=== PATIENT | male | born 2000 | race Two or more races ===

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

== ENCOUNTER → 2020-09-07 | Outpatient (REF) | payer OTHER ==
[2020-09-07 16:27] LABS: BASO % 0.5 % (0.0-1.0); EOS # 0.5 10^3/uL (0.0-0.5); EOS % 8.7 % (0.0-3.0); HEMATOCRIT 48.6 % (42.0-52.0); HEMOGLOBIN 16.4 g/dl (13.5-17.5); LYMPH # 2.7 10^3/uL (1.5-5.0); LYMPH % 47.2 % (24.0-44.0); MEAN CORPUSCULAR HEMOGLOBIN 30.1 pg (27.0-33.0); MEAN CORPUSCULAR HGB CONC 33.7 g/dl (32.0-36.5); MEAN CORPUSCULAR VOLUME 89.3 fl (80.0-96.0); MONO # 0.5 10^3/uL (0.0-0.8); MONO % 9.2 % (2.0-8.0); NEUTROPHILS # 1.9 10^3/uL (1.5-8.5); NEUTROPHILS % 34.2 % (36.0-66.0); PLATELET COUNT, AUTOMATED 286 10^3/uL (150-450); RED BLOOD COUNT 5.44 10^6/uL (4.30-6.10); WHITE BLOOD COUNT 5.6 10^3/uL (4.0-10.0)
[2020-09-07 16:54] LABS: MONO REFLEX EBV COMP NEGATIVE (NEGATIVE)
[2020-09-07 17:02] LABS: ALBUMIN 4.3 GM/DL (3.2-5.2); ALT/SGPT 108 U/L (12-78); BILIRUBIN,TOTAL 0.4 MG/DL (0.2-1.0); BLOOD UREA NITROGEN 15 MG/DL (7-18); CALCIUM LEVEL 10.2 MG/DL (8.5-10.1); CARBON DIOXIDE LEVEL 28 MEQ/L (21-32); CHLORIDE LEVEL 104 MEQ/L (98-107); CREATININE FOR GFR 1.01 MG/DL (0.70-1.30); GLUCOSE, FASTING 87 MG/DL (70-100); POTASSIUM SERUM 4.3 MEQ/L (3.5-5.1); SODIUM LEVEL 138 MEQ/L (136-145); TOTAL PROTEIN 7.9 GM/DL (6.4-8.2)
[2020-09-09 15:12] LABS: EBV VIRAL CAPSID AG IgM <36.0 U/mL (0.0-35.9)
== END ==
LOC: M SFHCCAPE 08:23
PROVIDERS: ATTEND Physician Assistant
DX: J02.9 Acute pharyngitis, unspecified (principal)
CPT/HCPCS: 80053; 85025; 86308; 86664; 86665; G0463

== ENCOUNTER → 2021-09-26 | Outpatient (REF) | payer OTHER | LOC: M SFHCCAPE 10:34 | PROVIDERS: ATTEND Physician Assistant | DX: F32.A Depression, unspecified (principal); F41.9 Anxiety disorder, unspecified; R41.840 Attention and concentration deficit; F43.22 Adjustment disorder with anxiety; E66.9 Obesity, unspecified ==

== ENCOUNTER → 2021-09-27 | Outpatient (REF) | payer OTHER ==
[2021-09-27 16:07] LABS: BASO % 0.6 % (0.0-1.0); EOS # 0.2 10^3/uL (0.0-0.5); EOS % 4.1 % (0.0-3.0); HEMATOCRIT 43.9 % (42.0-52.0); HEMOGLOBIN 14.8 g/dl (13.5-17.5); LYMPH # 2.2 10^3/uL (1.5-5.0); LYMPH % 41.1 % (24.0-44.0); MEAN CORPUSCULAR HGB CONC 33.7 g/dl (32.0-36.5); MONO # 0.5 10^3/uL (0.0-0.8); MONO % 9.8 % (2.0-8.0); NEUTROPHILS # 2.4 10^3/uL (1.5-8.5); NEUTROPHILS % 44.2 % (36.0-66.0); PLATELET COUNT, AUTOMATED 223 10^3/uL (150-450); RED BLOOD COUNT 4.93 10^6/uL (4.30-6.10); WHITE BLOOD COUNT 5.4 10^3/uL (4.0-10.0)
[2021-09-27 16:49] LABS: ALBUMIN 3.9 GM/DL (3.2-5.2); ALT/SGPT 34 U/L (12-78); BILIRUBIN,TOTAL 0.6 MG/DL (0.2-1.0); BLOOD UREA NITROGEN 18 MG/DL (7-18); CALCIUM LEVEL 8.8 MG/DL (8.5-10.1); CARBON DIOXIDE LEVEL 27 MEQ/L (21-32); CHLORIDE LEVEL 109 MEQ/L (98-107); CHOLESTEROL LEVEL 153 MG/DL (<200); CHOLESTEROL RISK RATIO 3.825 (<5); CREATININE FOR GFR 1.07 MG/DL (0.70-1.30); GLOMERULAR FILTRATION RATE > 60.0 (>60); GLUCOSE, FASTING 92 MG/DL (70-100); HDL CHOLESTEROL 40 MG/DL (>40); LDL CHOLESTEROL 97 MG/DL (<100); NON-HDL-C 113 MG/DL; POTASSIUM SERUM 4.3 MEQ/L (3.5-5.1); SODIUM LEVEL 139 MEQ/L (136-145); THYROID STIMULATING HORMONE 0.791 uIU/ML (0.358-3.740); TOTAL PROTEIN 6.8 GM/DL (6.4-8.2); TRIGLYCERIDES LEVEL 80 MG/DL (<150)
[2021-09-27 17:55] LABS: TOTAL 25(OH) VITAMIN D 22.9 NG/ML (30.0-100.0); VITAMIN B12 LEVEL 381 PG/ML
== END ==
LOC: M SFHCCAPE 07:19
PROVIDERS: ATTEND Physician Assistant
DX: F32.A Depression, unspecified (principal); F41.9 Anxiety disorder, unspecified; R41.840 Attention and concentration deficit; F43.22 Adjustment disorder with anxiety; E66.9 Obesity, unspecified

== ENCOUNTER 2024-06-05 08:52 | Day surgery (SDC) | payer BC ==
[~2024-06-05] VITALS: Ht 188 cm; Wt 122.9 kg
[~2024-06-05 08:52] MED LIST: AMPH1TAB2 PO; DEXTROAMPHETAMINE PO
[2024-06-05] MEDS: LR 1,000 ML IV SCH (10:07)
[2024-06-05] MEDS ORDERED: ROCURONIUM BROMIDE 50MG/5ML VIAL As Ordered ONE (10:29)
[2024-06-05] MEDS ORDERED: LIDOCAINE 2% 100MG/5ML SDV (FOR ANES.) As Ordered ONE (10:29)
[2024-06-05] MEDS ORDERED: propofoL 200 MG/20 ML VIAL As Ordered ONE (10:29)
[2024-06-05] MEDS ORDERED: MIDAZOLAM INJ 2MG/2ML VIAL As Ordered ONE (10:29)
[2024-06-05] MEDS ORDERED: fentaNYL 100 MCG/2 ML INJECTION As Ordered ONE (10:29)
[2024-06-05] MEDS: NS (Normal Saline) 0.9% 1,000 ML IV SCH (10:35)
[2024-06-05] MEDS ORDERED: ONDANSETRON 4MG 2ML VIAL As Ordered ONE (11:03)
[2024-06-05] MEDS ORDERED: SUGAMMADEX SODIUM 500 MG/5 ML VIAL (BRIDION) As Ordered ONE (11:06)
[2024-06-05] MEDS ORDERED: ACETAMINOPHEN 1000MG/100ML IV BAG As Ordered ONE (11:06)
[2024-06-05] MEDS ORDERED: ONDANSETRON 4MG 2ML VIAL IV PRN (11:30)
[2024-06-05] MEDS ORDERED: fentaNYL 100 MCG/2 ML INJECTION IV PRN (11:30)
[2024-06-05] MEDS: oxyCODONE 5MG TAB PO PRN (11:48)
[2024-06-05 12:40] VITALS: BP 128/72; TEMP 97.5; O2SAT 98
== END 2024-06-05 12:44 | disposition home or self-care (01) ==
LOC: M SDC 08:52
PROVIDERS: ATTEND Otolaryngology
DX: J35.01 Chronic tonsillitis (principal); R06.83 Snoring; J00 Acute nasopharyngitis [common cold]; F90.9 Attention-deficit hyperactivity disorder, unspecified type; J45.909 Unspecified asthma, uncomplicated; Z79.899 Other long term (current) drug therapy; Z88.4 Allergy status to anesthetic agent
CPT/HCPCS: 42826; 88302; J0131; J1100; J2250; J2405; J3010

== ENCOUNTER 2024-06-06 09:03 | Day surgery (SDC) | payer BC, OTHER ==
[~2024-06-06] VITALS: Ht 188 cm; Wt 124.0 kg
[2024-06-06] MEDS: NS (Normal Saline) 0.9% 1,000 ML IV ONE (09:45)
[2024-06-06] MEDS: TRANEXAMIC ACID 100 MG/ML 10ML VIAL NEB ONE (09:53)
[2024-06-06 09:57] LABS: BASO % 0.2 % (0.0-1.0); EOS % 0.1 % (0.0-3.0); HEMOGLOBIN 16.4 g/dl (13.5-17.5); LYMPH % 14.1 % (24.0-44.0); MEAN CORPUSCULAR HEMOGLOBIN 30.5 pg (27.0-33.0); MEAN CORPUSCULAR HGB CONC 34.9 g/dl (32.0-36.5); MEAN CORPUSCULAR VOLUME 87.4 fl (80.0-96.0); MONO # 1.5 10^3/uL (0.0-0.8); MONO % 10.7 % (2.0-8.0); NEUTROPHILS # 10.3 10^3/uL (1.5-8.5); NEUTROPHILS % 74.5 % (36.0-66.0); PLATELET COUNT, AUTOMATED 244 10^3/uL (150-450); RED BLOOD COUNT 5.38 10^6/uL (4.30-6.10); WHITE BLOOD COUNT 13.9 10^3/uL (4.0-10.0)
[2024-06-06 10:10] LABS: INR 0.99; PARTIAL THROMBOPLASTIN TIME 27.5 SECONDS (24.8-34.2); PROTHROMBIN TIME 13.4 SECONDS (12.5-14.5)
[2024-06-06 10:24] LABS: BLOOD UREA NITROGEN 16 MG/DL (9-23); CALCIUM LEVEL 9.6 MG/DL (8.5-10.1); CARBON DIOXIDE LEVEL 26 MMOL/L (20-31); CHLORIDE LEVEL 107 MMOL/L (98-107); CREATININE FOR GFR 0.93 MG/DL (0.70-1.30); GLOMERULAR FILTRATION RATE > 60.0 (>60); GLUCOSE, FASTING 98 MG/DL (60-100); POTASSIUM SERUM 4.1 MMOL/L (3.5-5.1); SODIUM LEVEL 141 MMOL/L (136-145)
[2024-06-06] MEDS: LIDOCAINE W/EPINEPHRINE 1% 20ML VIAL As Ordered ONE (10:33)
[2024-06-06] MEDS: OXYMETAZOLINE 0.05% NASAL SPRAY (AFRIN) As Ordered ONE (10:39)
[2024-06-06] MEDS ORDERED: fentaNYL 100 MCG/2 ML INJECTION As Ordered ONE (11:20)
[2024-06-06] MEDS ORDERED: propofoL 200 MG/20 ML VIAL As Ordered ONE (11:20)
[2024-06-06] MEDS ORDERED: ROCURONIUM BROMIDE 50MG/5ML VIAL As Ordered ONE (11:20)
[2024-06-06] MEDS ORDERED: ONDANSETRON 4MG 2ML VIAL As Ordered ONE (11:20)
[2024-06-06] MEDS ORDERED: LIDOCAINE 2% 100MG/5ML SDV (FOR ANES.) As Ordered ONE (11:20)
[2024-06-06] MEDS ORDERED: MIDAZOLAM INJ 2MG/2ML VIAL As Ordered ONE (11:20)
[2024-06-06] MEDS ORDERED: SUCCINYLCHOLINE 100MG/5ML SYRINGE As Ordered ONE (11:20)
[2024-06-06] MEDS ORDERED: dexmedeTOMIDine (4MCG/ML)200MCG/50ML BTL (PRECEDEX) As Ordered ONE (11:21)
[2024-06-06] MEDS ORDERED: SUGAMMADEX SODIUM 500 MG/5 ML VIAL (BRIDION) As Ordered ONE (11:22)
[2024-06-06] MEDS ORDERED: MORPHINE 2 MG/ML 1ML VIAL IV PRN (11:35)
[2024-06-06] MEDS ORDERED: oxyCODONE 5MG TAB PO PRN (11:35)
[2024-06-06] MEDS ORDERED: ONDANSETRON 4MG 2ML VIAL IV PRN (11:35)
[2024-06-06] MEDS ORDERED: fentaNYL 100 MCG/2 ML INJECTION IV PRN (11:35)
[2024-06-06] MEDS ORDERED: MEPERIDINE 50 MG/ML 1ML VIAL As Ordered ONE (11:51)
[2024-06-06] MEDS ORDERED: LR 1,000 ML IV SCH (12:35)
[2024-06-06] MEDS: HYDROcodone/APAP LIQUID 7.5-325MG 15ML UDC (LORTAB ELIXIR) PO PRN (12:36)
[2024-06-06 13:15] VITALS: BP 140/77; TEMP 98; O2SAT 98
== END 2024-06-06 13:22 | disposition home or self-care (01) ==
LOC: M ED 09:03 → M SDC 09:04
PROVIDERS: ATTEND Otolaryngology
DX: J95.830 Postprocedural hemorrhage of a respiratory system organ or structure following a respiratory system procedure (principal); J45.909 Unspecified asthma, uncomplicated; F90.9 Attention-deficit hyperactivity disorder, unspecified type; Z79.899 Other long term (current) drug therapy; Z88.8 Allergy status to other drugs, medicaments and biological substances
CPT/HCPCS: 36415; 42962; 80048; 85025; 85610; 85730; 86850; 86900; 86901; 93041; 94640; 96374; 99285; J0330; J0665; J1100; J2175; J2250; J2405; J3010